=== PATIENT | female | born 1965 | race African-American/Black ===

== ENCOUNTER 2021-10-29 13:49 | Emergency (ER) | payer OTHER ==
[~2021-10-29] VITALS: Ht 165.1 cm; Wt 81.8 kg
[2021-10-29 14:02] VITALS: BP 116/73
== END 2021-10-29 14:58 | disposition home or self-care (01) ==
LOC: ER 13:50
DX: R51.9 Headache, unspecified (principal)
CPT/HCPCS: 99281